=== PATIENT | female | born 1985 | race Two or more races ===

== ENCOUNTER 2021-02-09 22:10 | Emergency (ER) | payer BC, OTHER ==
[~2021-02-09] VITALS: Ht 160 cm; Wt 68.0 kg
--- NOTE | 2021-02-09 22:15 | NUR ---
PATIENT [id number] LACERATION TO RIGHT THUMB, UNK LAST TDAP, ADMITS TO ETOH. PATIENT A/O X 4, RR EVEN, NO SOB NOTED. PATIENT VSS. WILL CONTINUE TO MONITOR.
--- NOTE | 2021-02-09 22:16 | NUR ---
EMT AT BEDSIDE, CLEAN WOUND
[2021-02-09] MEDS ORDERED: LIDOCAINE 0.5% HCL 50 ML VIAL ONE (22:21)
[2021-02-09] MEDS ORDERED: TDAP [DIPH/PERTUSSIS/TET] 0.5 ML VIAL IM ONE ×2 (22:28→22:30)
[2021-02-09] MEDS ORDERED: LIDOCAINE HCL/PF 1% 30 ML VIAL TP ONE (22:30)
[2021-02-09] MEDS ORDERED: CEPH500C2 PO (23:32)
[2021-02-09 23:41] VITALS: BP 124/64
--- NOTE | 2021-02-09 23:42 | NUR ---
Patient discharged to home in stable condition. RX and Written and verbal after care instructions given. Patient verbalizes understanding of instruction.
== END 2021-02-09 23:42 | disposition home or self-care (01) ==
LOC: ER 22:12
DX: S61.011A Laceration without foreign body of right thumb without damage to nail, initial encounter (principal); W25.XXXA Contact with sharp glass, initial encounter; Y93.89 Activity, other specified; Y92.89 Other specified places as the place of occurrence of the external cause; Y99.8 Other external cause status
CPT/HCPCS: 12002; 90471; 90715; 99283; J3490 ×2

== ENCOUNTER 2021-02-18 14:49 | Emergency (ER) | payer BC ==
[~2021-02-18] VITALS: Ht 162.6 cm; Wt 72.6 kg
[~2021-02-18 14:49] MED LIST: CEPH500C2 PO
[2021-02-18 15:01] VITALS: BP 133/92
--- NOTE | 2021-02-18 15:38 | NUR ---
suture removed by matt lopez
--- NOTE | 2021-02-18 15:42 | NUR ---
Patient discharged to home in stable condition. Written and verbal after care instructions given. Patient verbalizes understanding of instruction.
== END 2021-02-18 15:43 | disposition home or self-care (01) ==
LOC: ER 14:51
DX: S61.011D Laceration without foreign body of right thumb without damage to nail, subsequent encounter (principal); X58.XXXD Exposure to other specified factors, subsequent encounter